=== PATIENT | female | born 1960 | race Caucasian/White ===

== ENCOUNTER 2017-10-08 23:48 | Emergency (ER) | payer BC ==
[~2017-10-08] VITALS: Ht 162.6 cm; Wt 61.6 kg
[2017-10-09 00:56] LABS: MICROSCOPIC AUTO
[2017-10-09] MEDS ORDERED: KETOROLAC 30 MG/1 ML IM ONE (01:00)
[2017-10-09] MEDS ORDERED: DIAZEPAM 5 MG TABLET PO ONE (01:00)
[2017-10-09] MEDS ORDERED: HYDROmorphone 2 MG/ML, 1ML IM ONE (01:00)
[2017-10-09] MEDS ORDERED: KETOROLAC 30 MG/1 ML ONE (01:16)
[2017-10-09] MEDS ORDERED: HYDROmorphone 2 MG/ML, 1ML ONE (01:18)
[2017-10-09] MEDS ORDERED: DIAZEPAM 5 MG TABLET ONE (01:19)
[2017-10-09 01:25] LABS: BASOPHILS % (AUTO) 0 % (0-1); EOSINOPHILS # (AUTO) 0.06 x10^3/uL (0-0.4); EOSINOPHILS % (AUTO) 0 % (1-7); LYMPHOCYTES # (AUTO) 1.76 x10^3/uL (1-3.4); LYMPHOCYTES % (AUTO) 12 % (22-44); MD NO; MEAN CORPUSCULAR HEMOGLOBIN 30.9 pg (27.0-34.8); MEAN CORPUSCULAR VOLUME 90.9 fL (80-100); MEAN PLATELET VOLUME 8.3 fL (7.4-10.4); MONOCYTES # (AUTO) 0.36 x10^3/uL (0.2-0.8); MONOCYTES % (AUTO) 3 % (2-9); NEUTROPHILS % (AUTO) 85 % (42-75); PLATELET COUNT 338 x10^3/uL (130-400); RED BLOOD COUNT 4.89 x10^6/uL (3.82-5.3); RED CELL DISTRIBUTION WIDTH 13.7 % (9.6-15.2)
[2017-10-09 01:27] LABS: ALBUMIN 4.3 g/dL (3.4-5.0); ANION GAP 10 mmol/L (5-15); CALCIUM 9.7 mg/dL (8.5-10.1); CHLORIDE 99 mmol/L (98-107); CREATININE 0.82 mg/dL (0.55-1.02)
[2017-10-09 02:54] VITALS: BP 136/68
[2017-10-09] MEDS ORDERED: magnesium PO (21:35)
[2017-10-09] MEDS ORDERED: GLUC1CAP18 PO (21:35)
[2017-10-09] MEDS ORDERED: vitamin c PO (21:35)
[2017-10-09] MEDS ORDERED: calcium PO (21:35)
[2017-10-09] MEDS ORDERED: fiber PO (21:35)
[2017-10-09] MEDS ORDERED: [UNRECOGNIZED DRUG - OTHER] PO (21:35)
[2017-10-09] MEDS ORDERED: UBID100C41 PO (21:35)
[2017-10-09] MEDS ORDERED: vitamin d PO (21:35)
[2017-10-09] MEDS ORDERED: potassium PO (21:35)
[2017-10-09] MEDS ORDERED: probiotic PO (21:35)
== END 2017-10-09 02:56 | disposition home or self-care (01) ==
LOC: ED 10-09 02:50
DX: M54.5 Low back pain (principal); K52.89 Other specified noninfective gastroenteritis and colitis; F17.200 Nicotine dependence, unspecified, uncomplicated; Z88.0 Allergy status to penicillin; Z88.2 Allergy status to sulfonamides
CPT/HCPCS: 36415; 74176; 80048; 81001; 82040; 85025; 93005; 96372; 99285; J1170; J1885

== ENCOUNTER 2017-10-09 19:42 | Inpatient (IN) | payer BC ==
[~2017-10-09] VITALS: Ht 162.6 cm; Wt 63.0 kg
[2017-10-09] MEDS ORDERED: SODIUM CHLORIDE FLUSH 10ML SYR IVF ONE (20:30)
[2017-10-09] MEDS ORDERED: FAMOTIDINE 20 MG TABLET PO ONE (20:30)
[2017-10-09] MEDS ORDERED: SODIUM CHLORIDE 0.9% 1,000ML IVBOLUS ONE ×2 (20:30→21:00)
[2017-10-09] MEDS ORDERED: ONDANSETRON ODT 4 MG PO ONE (20:30)
[2017-10-09 20:33] LABS: BASOPHILS # (AUTO) 0.03 x10^3/uL (0-0.1); BASOPHILS % (AUTO) 0 % (0-1); EOSINOPHILS # (AUTO) 0.14 x10^3/uL (0-0.4); EOSINOPHILS % (AUTO) 1 % (1-7); LYMPHOCYTES # (AUTO) 2.88 x10^3/uL (1-3.4); LYMPHOCYTES % (AUTO) 22 % (22-44); MD NO; MEAN CORPUSCULAR HGB CONC 34.2 g/dL (32.4-35.8); MEAN CORPUSCULAR VOLUME 90.7 fL (80-100); MEAN PLATELET VOLUME 8.1 fL (7.4-10.4); MONOCYTES # (AUTO) 0.89 x10^3/uL (0.2-0.8); MONOCYTES % (AUTO) 7 % (2-9); NEUTROPHILS # (AUTO) 8.94 x10^3/uL (1.8-6.8); NEUTROPHILS % (AUTO) 69 % (42-75); PLATELET COUNT 314 x10^3/uL (130-400); RED BLOOD COUNT 4.44 x10^6/uL (3.82-5.3); RED CELL DISTRIBUTION WIDTH 13.3 % (9.6-15.2)
[2017-10-09] MEDS ORDERED: ONDANSETRON ODT 4 MG ONE (20:40)
[2017-10-09] MEDS ORDERED: MORPHINE SULFATE 4 MG/ML, 1ML ONE (20:40)
[2017-10-09 20:41] LABS: ALANINE AMINOTRANSFERASE 34 U/L (12-78); ALBUMIN 3.9 g/dL (3.4-5.0); ANION GAP 6 mmol/L (5-15); CALCIUM 8.7 mg/dL (8.5-10.1); CHLORIDE 93 mmol/L (98-107)
[2017-10-09 20:44] LABS: ALKALINE PHOSPHATASE 100 U/L (45-117); BILIRUBIN,TOTAL 0.4 mg/dL (0.2-1.0); CREATININE 0.81 mg/dL (0.55-1.02); TOTAL PROTEIN 7.3 g/dL (6.4-8.2)
[2017-10-09] MEDS ORDERED: MORPHINE SULFATE 4 MG/ML, 1ML IVPush PRN (21:00)
[2017-10-09 21:02] LABS: MICROSCOPIC NOT IND
[2017-10-09 21:04] LABS: CULTURE INDICATED? NO
[2017-10-09] MEDS ORDERED: FAMOTIDINE 20 MG TABLET ONE (21:26)
[2017-10-09] MEDS ORDERED: ENALAPRILAT 1.25 MG/ML, 2ML ONE (21:26)
[2017-10-09] MEDS ORDERED: ENALAPRILAT 1.25 MG/ML, 2ML IV ONE (21:30)
[2017-10-09] MEDS ORDERED: [UNRECOGNIZED DRUG - OTHER] PO (21:35)
[2017-10-09] MEDS ORDERED: vitamin d PO (21:35)
[2017-10-09] MEDS ORDERED: UBID100C41 PO (21:35)
[2017-10-09] MEDS ORDERED: vitamin c PO (21:35)
[2017-10-09] MEDS ORDERED: magnesium PO (21:35)
[2017-10-09] MEDS ORDERED: potassium PO (21:35)
[2017-10-09] MEDS ORDERED: calcium PO (21:35)
[2017-10-09] MEDS ORDERED: probiotic PO (21:35)
[2017-10-09] MEDS ORDERED: GLUC1CAP18 PO (21:35)
[2017-10-09] MEDS ORDERED: fiber PO (21:35)
[2017-10-09] MEDS ORDERED: POLYETHYLENE GLYCOL 17 GM PACKET PO PRN (22:30)
[2017-10-09] MEDS ORDERED: ACETAMINOPHEN 325 MG TABLET PO PRN (22:30)
[2017-10-09] MEDS ORDERED: BISACODYL 10 MG SUPP PR PRN (22:30)
[2017-10-09 22:37] VITALS: BP 146/99
[2017-10-09] MEDS: CIPROFLOXACIN/PMX 400MG/200ML 200 ML IV SCH (23:15)
[2017-10-09] MEDS: POTASSIUM CHLORIDE 30 MEQ in SODIUM CHLORIDE 0.9% 1,000 ML IV SCH (23:15)
[2017-10-09] MEDS: morphine SULFATE 10 MG/ML, 1ML IVPush PRN (23:15)
[2017-10-09] MEDS: HEPARIN 5,000 UNITS/ML, 1ML SQ SCH (23:15)
[2017-10-09] MEDS: NICOTINE 14MG/24 HR PATCH.TD24 TD SCH (23:15)
[2017-10-10] MEDS: METRONIDAZOLE PMX 500MG/100ML 100 ML IV SCH ×3 (00:42→15:44)
[2017-10-10] MEDS: morphine SULFATE 10 MG/ML, 1ML IVPush PRN ×4 (02:33→23:27)
[2017-10-10] MEDS: ONDANSETRON 2MG/ML, 2ML IVPush PRN ×2 (02:40→10:43)
[2017-10-10 02:43] VITALS: BP 115/65
[2017-10-10 05:15] LABS: ALBUMIN 3.2 g/dL (3.4-5.0); ANION GAP 7 mmol/L (5-15); CALCIUM 8.2 mg/dL (8.5-10.1); CHLORIDE 99 mmol/L (98-107)
[2017-10-10 05:19] LABS: ALANINE AMINOTRANSFERASE 26 U/L (12-78); ALKALINE PHOSPHATASE 81 U/L (45-117); BILIRUBIN,TOTAL 0.3 mg/dL (0.2-1.0); CREATININE 0.81 mg/dL (0.55-1.02); TOTAL PROTEIN 6.1 g/dL (6.4-8.2)
[2017-10-10 05:26] LABS: BASOPHILS # (AUTO) 0.04 x10^3/uL (0-0.1); BASOPHILS % (AUTO) 0 % (0-1); EOSINOPHILS # (AUTO) 0.18 x10^3/uL (0-0.4); EOSINOPHILS % (AUTO) 2 % (1-7); LYMPHOCYTES # (AUTO) 2.23 x10^3/uL (1-3.4); LYMPHOCYTES % (AUTO) 21 % (22-44); MD NO; MEAN CORPUSCULAR HEMOGLOBIN 31.5 pg (27.0-34.8); MEAN CORPUSCULAR HGB CONC 34.6 g/dL (32.4-35.8); MEAN CORPUSCULAR VOLUME 91.1 fL (80-100); MEAN PLATELET VOLUME 8.4 fL (7.4-10.4); MONOCYTES # (AUTO) 0.77 x10^3/uL (0.2-0.8); MONOCYTES % (AUTO) 7 % (2-9); NEUTROPHILS # (AUTO) 7.37 x10^3/uL (1.8-6.8); NEUTROPHILS % (AUTO) 70 % (42-75); PLATELET COUNT 281 x10^3/uL (130-400); RED BLOOD COUNT 4.04 x10^6/uL (3.82-5.3); RED CELL DISTRIBUTION WIDTH 13.1 % (9.6-15.2)
[2017-10-10] MEDS: HEPARIN 5,000 UNITS/ML, 1ML SQ SCH ×3 (08:02→23:27)
[2017-10-10 08:08] VITALS: BP 125/63
[2017-10-10] MEDS: SENNA/DOCUSATE TABLET PO SCH (09:00)
[2017-10-10] MEDS: CIPROFLOXACIN/PMX 400MG/200ML 200 ML IV SCH ×2 (10:35→23:28)
[2017-10-10] MEDS: POTASSIUM CHLORIDE 30 MEQ in SODIUM CHLORIDE 0.9% 1,000 ML IV SCH (13:26)
[2017-10-10 20:04] VITALS: BP 158/76
[2017-10-10] MEDS: NICOTINE 14MG/24 HR PATCH.TD24 TD SCH (23:27)
[2017-10-11] MEDS: METRONIDAZOLE PMX 500MG/100ML 100 ML IV SCH ×2 (00:54→08:29)
[2017-10-11 00:56] VITALS: BP 150/76
[2017-10-11] MEDS: ONDANSETRON 2MG/ML, 2ML IVPush PRN (02:47)
[2017-10-11] MEDS: morphine SULFATE 10 MG/ML, 1ML IVPush PRN ×2 (02:48→05:47)
[2017-10-11] MEDS: POTASSIUM CHLORIDE 30 MEQ in SODIUM CHLORIDE 0.9% 1,000 ML IV SCH ×2 (05:10→19:05)
[2017-10-11 05:35] LABS: BASOPHILS # (AUTO) 0.01 x10^3/uL (0-0.1); BASOPHILS % (AUTO) 0 % (0-1); EOSINOPHILS # (AUTO) 0.08 x10^3/uL (0-0.4); EOSINOPHILS % (AUTO) 1 % (1-7); LYMPHOCYTES # (AUTO) 1.73 x10^3/uL (1-3.4); LYMPHOCYTES % (AUTO) 16 % (22-44); MD NO; MEAN CORPUSCULAR HGB CONC 33.6 g/dL (32.4-35.8); MEAN CORPUSCULAR VOLUME 92.2 fL (80-100); MEAN PLATELET VOLUME 8.6 fL (7.4-10.4); MONOCYTES % (AUTO) 8 % (2-9); NEUTROPHILS # (AUTO) 7.99 x10^3/uL (1.8-6.8); NEUTROPHILS % (AUTO) 75 % (42-75); PLATELET COUNT 247 x10^3/uL (130-400); RED BLOOD COUNT 3.97 x10^6/uL (3.82-5.3); RED CELL DISTRIBUTION WIDTH 14.1 % (9.6-15.2)
[2017-10-11 05:45] LABS: ANION GAP 6 mmol/L (5-15); CALCIUM 8.3 mg/dL (8.5-10.1); CHLORIDE 105 mmol/L (98-107); CREATININE 0.73 mg/dL (0.55-1.02)
[2017-10-11 07:37] VITALS: BP 162/76
[2017-10-11] MEDS: SODIUM CHLORIDE 0.9% 1,000 ML IV SCH (08:28)
[2017-10-11] MEDS: ACETAMINOPHEN 325 MG TABLET PO SCH ×3 (08:28→19:07)
[2017-10-11] MEDS: HEPARIN 5,000 UNITS/ML, 1ML SQ SCH ×3 (08:29→21:32)
[2017-10-11] MEDS: SENNA/DOCUSATE TABLET PO SCH (08:31)
[2017-10-11] MEDS: HYDROmorphone 2MG TABLET PO PRN ×3 (08:44→21:16)
[2017-10-11] MEDS ORDERED: NICO-486 TD (10:50)
[2017-10-11] MEDS ORDERED: CIPR500T8 PO (10:50)
[2017-10-11] MEDS ORDERED: METR500T PO (10:50)
[2017-10-11] MEDS: CIPROFLOXACIN/PMX 400MG/200ML 200 ML IV SCH (11:17)
[2017-10-11 14:00] VITALS: BP 126/74
[2017-10-11] MEDS: metroNIDAZOLE 500 MG TABLET PO SCH (16:00)
[2017-10-11 19:58] VITALS: BP 168/82
[2017-10-11] MEDS: CIPROFLOXACIN 500 MG TABLET PO SCH (21:17)
[2017-10-11] MEDS: NICOTINE 14MG/24 HR PATCH.TD24 TD SCH (21:24)
[2017-10-12] MEDS: ACETAMINOPHEN 325 MG TABLET PO SCH ×4 (01:17→21:43)
[2017-10-12] MEDS: metroNIDAZOLE 500 MG TABLET PO SCH ×4 (01:18→23:47)
[2017-10-12 01:48] VITALS: BP 189/80
[2017-10-12] MEDS: SODIUM CHLORIDE 0.9% 1,000 ML IV SCH ×2 (02:00→18:20)
[2017-10-12] MEDS: hydrALAzine 20 MG/ML, 1ML IVPush PRN ×2 (02:01→15:45)
[2017-10-12] MEDS: HYDROmorphone 2MG TABLET PO PRN ×4 (02:46→21:43)
[2017-10-12] MEDS: ONDANSETRON 2MG/ML, 2ML IVPush PRN (02:48)
[2017-10-12] MEDS ORDERED: BISACODYL 10 MG SUPP PR ONE (07:00)
[2017-10-12] MEDS ORDERED: MAGNESIUM CITRATE 300ML ORAL SOL PO ONE (07:00)
[2017-10-12] MEDS: HEPARIN 5,000 UNITS/ML, 1ML SQ SCH ×3 (07:44→23:47)
[2017-10-12] MEDS: SENNA/DOCUSATE TABLET PO SCH (07:45)
[2017-10-12] MEDS: CIPROFLOXACIN 500 MG TABLET PO SCH ×2 (07:45→21:43)
[2017-10-12 08:27] VITALS: BP 158/65
[2017-10-12] MEDS ORDERED: IBUPROFEN 200 MG TABLET PO PRN (10:30)
[2017-10-12 12:56] VITALS: BP 173/79
[2017-10-12] MEDS: LACTOBACILLUS CHEW TABLET PO SCH ×2 (15:29→21:43)
[2017-10-12 15:40] VITALS: BP 182/79
[2017-10-12 16:08] VITALS: BP 137/73
[2017-10-12 19:45] VITALS: BP 159/73
[2017-10-12] MEDS: NICOTINE 14MG/24 HR PATCH.TD24 TD SCH (21:44)
[2017-10-13 03:18] VITALS: BP 177/76
[2017-10-13] MEDS: ACETAMINOPHEN 325 MG TABLET PO SCH ×4 (04:12→22:43)
[2017-10-13] MEDS: HYDROmorphone 2MG TABLET PO PRN ×4 (04:13→18:14)
[2017-10-13] MEDS: SODIUM CHLORIDE 0.9% 1,000 ML IV SCH ×2 (04:16→22:46)
[2017-10-13 07:08] VITALS: BP 169/76
[2017-10-13] MEDS: ISOSORBIDE DINITRATE 10 MG TABLET PO SCH ×2 (07:55→16:16)
[2017-10-13] MEDS: HEPARIN 5,000 UNITS/ML, 1ML SQ SCH ×2 (07:55→16:15)
[2017-10-13] MEDS: metroNIDAZOLE 500 MG TABLET PO SCH ×2 (07:55→16:16)
[2017-10-13] MEDS: SENNA/DOCUSATE TABLET PO SCH (07:56)
[2017-10-13] MEDS: CIPROFLOXACIN 500 MG TABLET PO SCH ×2 (07:56→20:07)
[2017-10-13] MEDS: LACTOBACILLUS CHEW TABLET PO SCH ×2 (07:56→16:15)
[2017-10-13 12:23] VITALS: BP 174/76
[2017-10-13] MEDS: hydrALAzine 20 MG/ML, 1ML IVPush PRN (13:29)
[2017-10-13] MEDS ORDERED: FENTANYL PF 100 MCG/2ML ONE (13:37)
[2017-10-13] MEDS ORDERED: MIDAZOLAM 1 MG/ML, 5ML ONE (13:38)
[2017-10-13 20:03] VITALS: BP 168/70
[2017-10-13] MEDS: NICOTINE 14MG/24 HR PATCH.TD24 TD SCH (22:43)
[2017-10-14 00:11] VITALS: BP 168/68
[2017-10-14] MEDS: HEPARIN 5,000 UNITS/ML, 1ML SQ SCH ×4 (00:11→23:21)
[2017-10-14] MEDS: metroNIDAZOLE 500 MG TABLET PO SCH ×3 (00:13→15:33)
[2017-10-14] MEDS: LACTOBACILLUS CHEW TABLET PO SCH ×4 (00:13→21:29)
[2017-10-14] MEDS: ISOSORBIDE DINITRATE 10 MG TABLET PO SCH ×4 (00:13→21:29)
[2017-10-14] MEDS: HYDROmorphone 2MG TABLET PO PRN ×2 (00:14→05:59)
[2017-10-14] MEDS: ACETAMINOPHEN 325 MG TABLET PO SCH ×4 (04:00→21:30)
[2017-10-14 04:04] VITALS: BP 179/77
[2017-10-14] MEDS: ONDANSETRON 2MG/ML, 2ML IVPush PRN (04:42)
[2017-10-14 05:51] VITALS: BP 164/74
[2017-10-14] MEDS: SENNA/DOCUSATE TABLET PO SCH (07:51)
[2017-10-14] MEDS: CIPROFLOXACIN 500 MG TABLET PO SCH ×2 (07:53→21:29)
[2017-10-14 08:02] VITALS: BP 137/75
[2017-10-14] MEDS ORDERED: ROCURONIUM 10 MG/ML,10ML ONE (11:01)
[2017-10-14] MEDS ORDERED: SUCCINYLCHOLINE 20 MG/ML, 10ML ONE (11:01)
[2017-10-14] MEDS ORDERED: EPHEDRINE 50 MG/ML, 1ML ONE (11:01)
[2017-10-14] MEDS ORDERED: PROPOFOL 10 MG/ML, 20ML ONE (11:01)
[2017-10-14] MEDS ORDERED: MIDAZOLAM 1 MG/ML, 2ML ONE (11:03)
[2017-10-14] MEDS ORDERED: FENTANYL PF 100 MCG/2ML ONE (11:03)
[2017-10-14] MEDS ORDERED: GADOBUTROL 10 MMOL/10 ML VIAL ONE (13:11)
[2017-10-14] MEDS ORDERED: OXYcodone 5 MG/5 ML ORAL.SOL UDC ONE (13:43)
[2017-10-14] MEDS ORDERED: OXYcodone 5 MG/5 ML ORAL.SOL UDC PO PRN (14:00)
[2017-10-14] MEDS ORDERED: FENTANYL PF 100 MCG/2ML IV PRN (14:00)
[2017-10-14 14:12] VITALS: BP 134/67
[2017-10-14 19:19] VITALS: BP 137/68
[2017-10-14] MEDS: SODIUM CHLORIDE 0.9% 1,000 ML IV SCH (21:29)
[2017-10-14] MEDS: NICOTINE 14MG/24 HR PATCH.TD24 TD SCH (21:30)
[2017-10-15] MEDS: metroNIDAZOLE 500 MG TABLET PO SCH ×2 (00:33→08:29)
[2017-10-15 03:56] VITALS: BP 187/56
[2017-10-15] MEDS: hydrALAzine 20 MG/ML, 1ML IVPush PRN (04:02)
[2017-10-15] MEDS: ACETAMINOPHEN 325 MG TABLET PO SCH ×2 (04:02→10:00)
[2017-10-15 07:25] VITALS: BP 155/67
[2017-10-15] MEDS: CIPROFLOXACIN 500 MG TABLET PO SCH (08:19)
[2017-10-15] MEDS: HEPARIN 5,000 UNITS/ML, 1ML SQ SCH (08:19)
[2017-10-15] MEDS: LACTOBACILLUS CHEW TABLET PO SCH (08:20)
[2017-10-15] MEDS: SENNA/DOCUSATE TABLET PO SCH (08:20)
[2017-10-15] MEDS: ISOSORBIDE DINITRATE 10 MG TABLET PO SCH (08:20)
[2017-10-15] MEDS ORDERED: HYDR-3342 PO (09:41)
[2017-10-15] MEDS ORDERED: ACID1TAB7 PO (09:41)
[2017-10-15] MEDS ORDERED: IBUP-1484 PO (09:41)
[2017-10-15] MEDS ORDERED: ISOS10TA2 PO (09:41)
[2017-10-15] MEDS ORDERED: ACET325T14 PO (09:41)
== END 2017-10-15 11:15 | disposition home or self-care (01) | DRG 641 ==
LOC: ED 21:12 → EDIP 21:24 → 3NW 22:25
PROVIDERS: ADMIT Internal Medicine; ATTEND Internal Medicine
DX: E87.1 Hypo-osmolality and hyponatremia (principal); E87.6 Hypokalemia; E86.0 Dehydration; F12.90 Cannabis use, unspecified, uncomplicated; K52.89 Other specified noninfective gastroenteritis and colitis; F17.210 Nicotine dependence, cigarettes, uncomplicated; I10 Essential (primary) hypertension; K59.00 Constipation, unspecified; M48.061 Spinal stenosis, lumbar region without neurogenic claudication; K76.9 Liver disease, unspecified; M19.90 Unspecified osteoarthritis, unspecified site; Z82.49 Family history of ischemic heart disease and other diseases of the circulatory system; Z88.2 Allergy status to sulfonamides; Z88.0 Allergy status to penicillin
CPT/HCPCS: 36415; 71045; 72157; 72158; 74183; 80048; 80053; 81003; 83690; 83735; 84295; 85025; 93005; 96374; 96375; 99156; 99157; A9585; J0744; J1644; J2250; J2405; J2704; J3010; J3480; Q0162; J0330; J0360; J2270; J7030

== ENCOUNTER 2020-06-06 04:50 | Emergency (ER) | payer BC ==
[~2020-06-06] VITALS: Ht 162.6 cm; Wt 60.6 kg
[~2020-06-06 04:50] MED LIST: ACET325T14 PO; ACID1TAB7 PO; CIPR500T8 PO; GLUC1CAP18 PO; HYDR-3342 PO; IBUP-1902 PO; ISOS10TA2 PO; METR500T PO; NICO-486 TD; UBID100C41 PO; [UNRECOGNIZED DRUG - OTHER] PO; calcium PO; fiber PO; magnesium PO; potassium PO; probiotic PO; vitamin c PO; vitamin d PO
--- NOTE | 2020-06-06 05:00 | NUR ---
PT HYPERTENSIVE IN TRIAGE. PT AWARE OF HTN AND SAYS ITS DUE TO THE PAIN AND SHE HASNT BEEN TAKING ANY MEDICATION FOR HTN RECENTLY. PT DENIES ANGILN, CHEST PAIN OR VISION CHANGES.
--- NOTE | 2020-06-06 05:21 | NUR ---
man BP = 190/82. Provider aware.
[2020-06-06 05:22] VITALS: BP 190/82
[2020-06-06] MEDS ORDERED: NITROGLYCERIN OINT 2%, 1GM TP ONE (05:30)
--- NOTE | 2020-06-06 05:33 | NUR ---
Pt dc'd with written and verbal instructions. Rx reviewed with patient. Pt states understanding to both. Pt has appt with dentist already scheduled today and is planning on attending. Pt ambulatory out of ED without difficulty.
== END 2020-06-06 05:36 | disposition home or self-care (01) ==
LOC: ED 05:10
DX: K08.89 Other specified disorders of teeth and supporting structures (principal); I10 Essential (primary) hypertension
CPT/HCPCS: 99283